=== PATIENT | female | born 1965 | race Caucasian/White ===

== ENCOUNTER 2016-12-01 10:16 | Emergency (ER) | payer OTHER ==
[2016-12-01 11:15] VITALS: BP 152/71
[2016-12-01] MEDS ORDERED: HYDROcodone/ACETAMIN 5-325 MG* 1 TAB PO ONE (11:58)
[2016-12-01] MEDS ORDERED: Ibuprofen TAB* 600 MG PO ONE (11:58)
--- NOTE | 2016-12-01 12:02 | UC ---
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 Prior injury to this shoulder in May 2014, seemed to have resolved. Right- handed. Since onset of pain, any movement is extremely painful. Feels best to hold it on a pillow and not move it. No other injuries. Pain seems anterior and over deltoid. No clavicular pain. - History of Current Complaint Chief Complaint: UCUpperExtremity Stated Complaint: RIGH SHOULDER INJURY (WC) Time Seen by Provider: 12/01/16 11:54 Hx Obtained From: Patient Hx Last Menstrual Period: age 37 Onset/Duration: Sudden Onset, Lasting Hours - 1 Timing: Constant Severity Initially: Moderate Severity Currently: Severe Location Of Pain: Is Discrete @ - right anterior and lat shoulder Character: Sharp, Aching, Spasmodic, Stiffness Aggravating Factor(s): Movement Alleviating Factor(s): Rest Associated Signs And Symptoms: Positive: Negative - Risk Factors Non-Orthopedic Risk Factor: Negative DVT Risk Factors: Negative Septic Arthritis Risk Factor: Negative - Allergies/Home Medications Allergies/Adverse Reactions: Allergies Allergy/AdvReac Type Severity Reaction Status Date / Time Codeine Allergy GI Upset Verified 12/01/16 11:15 migraine med Allergy Difficulty Uncoded 12/01/16 11:15 Breathing Home Medications: Home Medications Alendronate Sodium [Alendronate Sodium-] 5 mg PO WEEKLY 12/01/16 [History Confirmed 12/01/16] PMH/Surg Hx/FS Hx/Imm Hx Previously Healthy: Yes - Surgical History Surgical History: Yes Surgery Procedure, Year, and Place: uterine ablation, fibroid cysts - Family History Known Family History: Positive: Hypertension - Social History Occupation: Employed Full-time Lives: With Family Alcohol Use: Occasionally Substance Use Type: None Smoking Status (MU): Heavy Every Day Tobacco Smoker Type: Cigarettes Amount Used/How Often: 1 pack day Review of Systems Constitutional: Negative Skin: Negative Eyes: Negative ENT: Negative Respiratory: Negative Cardiovascular: Negative Gastrointestinal: Negative Genitourinary: Negative Motor: Negative Neurovascular: Negative Musculoskeletal: Arthralgia, Decreased ROM, Myalgia Neurological: Negative Psychological: Negative All Other Systems Reviewed And Are Negative: Yes Physical Exam Triage Information Reviewed: Yes Appearance: Well-Appearing, No Pain Distress, Well-Nourished Vital Signs: Initial Vital Signs Temp 98 F 12/01/16 11:08 Pulse 81 12/01/16 11:08 Resp 18 12/01/16 11:08 BP 152/71 12/01/16 11:08 Pulse Ox 100 12/01/16 11:08 Vital Signs Reviewed: Yes Eye Exam: Normal Neck exam: Normal Respiratory Exam: Normal Cardiovascular Exam: Normal Musculoskeletal Exam: Other - diffuse tenderness over right shoulder, particularly deltoid and biceps tendon. Too painful to move in any direction. HOlding elbow flexed and on pillow. Neurological Exam: Normal Psychological Exam: Normal Skin Exam: Normal Diagnostics - Laboratory Diagnostic Studies Completed/Ordered: XRay neg Shoulder Course/Dx - Differential Dx/Diagnosis Differential Diagnosis/HQI/PQRI: AC Separation, Fracture (Closed), Rotator Cuff Injury, Tendonitis Provider Diagnoses: rotator cuff injury Discharge - Discharge Plan Condition: Stable Disposition: HOME Prescriptions: Cyclobenzaprine TAB* [Flexeril TAB*] 10 mg PO TID PRN #30 tab PRN Reason: Pain Hydrocodone-Acetaminophen [Hydrocodone/Acetaminophen 5-325 mg] 1 - 2 tab PO Q6HR PRN #30 tab MDD 6 tab PRN Reason: Pain Patient Education Materials: Rotator Cuff Injury (ED) Forms: *Work Release Referrals: Viry Daily MD [Primary Care Provider] - Jay Wesley MD [Medical Doctor] - Margot Schmitz PA [Physician Regional Marketing Director] -
--- NOTE | 2016-12-01 12:14 | RAD ---
Indication: Shoulder pain. 3 views of the right shoulder demonstrates no fracture. No other bone or joint abnormality is identified. IMPRESSION: No fracture of the right shoulder is noted.
== END 2016-12-01 12:41 | disposition home or self-care (01) ==
LOC: UCCORT 10:16
DX: S46.001A Unspecified injury of muscle(s) and tendon(s) of the rotator cuff of right shoulder, initial encounter (principal); F17.210 Nicotine dependence, cigarettes, uncomplicated; X58.XXXA Exposure to other specified factors, initial encounter; Y92.9 Unspecified place or not applicable; Y99.0 Civilian activity done for income or pay; Z88.5 Allergy status to narcotic agent; Z88.8 Allergy status to other drugs, medicaments and biological substances
CPT/HCPCS: 99213; A9270-GY; G0463

== ENCOUNTER 2018-06-20 16:19 | Emergency (ER) | payer BC, OTHER ==
[2018-06-20 17:01] VITALS: BP 129/82
[2018-06-20] MEDS ORDERED: predniSONE TAB* 20 MG PO ONE (17:40)
--- NOTE | 2018-06-20 17:51 | UC ---
Skin Complaint HPI - HPI Summary HPI Summary: was at [employer] 3 days ago in a yard and noticed itchy rash on left leg which later spread to areas where she was scratching: arms, both legs, buttocks and thighs. Denies contact with insects, new food, chemical contact with skin. Denies chills, fever, SOB, dysphagia or wheezing. Has been taking Benadryl and hydrocortisone cream [id number] to her with some short lived relief - History of Current Complaint Chief Complaint: UCRash Time Seen by Provider: 06/20/18 17:21 Stated Complaint: RASH Hx Obtained From: Patient Hx Last Menstrual Period: age 37 ?: Yes Onset/Duration: Sudden Onset, Lasting Days Skin Exposure Onset/Duration: Days Ago Onset Severity: Mild Current Severity: Moderate Pain Intensity: 0 - Allergy/Home Medications Allergies/Adverse Reactions: Allergies Allergy/AdvReac Type Severity Reaction Status Date / Time codeine AdvReac GI Upset Verified 06/20/18 17:02 migraine med Allergy Difficulty Uncoded 06/20/18 17:02 Breathing Home Medications: Home Medications diphenhydrAMINE HCl [Benadryl Allergy] 25 mg PO Q4HR 06/20/18 [History Confirmed 06/20/18] Review of Systems Skin: Rash All Other Systems Reviewed And Are Negative: Yes PMH/Surg Hx/FS Hx/Imm Hx Previously Healthy: Yes Endocrine History: Other Other Endocrine History: OP GI/ History: Gastroesophageal Reflux - Surgical History Surgical History: Yes Surgery Procedure, Year, and Place: uterine ablation, fibroid cysts - Family History Known Family History: Positive: Hypertension - Social History Alcohol Use: Occasionally Substance Use Type: None Smoking Status (MU): Heavy Every Day Tobacco Smoker Type: Cigarettes Amount Used/How Often: 1 pack day Length of Time of Smoking/Using Tobacco: since age 17 Have You Smoked in the Last Year: Yes Physical Exam Triage Information Reviewed: Yes Appearance: Well-Appearing, No Pain Distress, Well-Nourished Vital Signs: Initial Vital Signs Temp 98.9 F 06/20/18 16:54 Pulse 89 06/20/18 16:54 Resp 16 06/20/18 16:54 BP 129/82 06/20/18 16:54 Pulse Ox 98 06/20/18 16:54 Vital Signs Reviewed: Yes Eyes: Positive: Conjunctiva Clear ENT: Positive: Hearing grossly normal, Pharynx normal Neck: Positive: Supple, Nontender Respiratory: Positive: Chest non-tender, Lungs clear, Normal breath sounds Cardiovascular: Positive: RRR, No Murmur, Pulses Normal, Brisk Capillary Refill Abdomen Description: Positive: Nontender Skin: Positive: rashes - blanching macular rash on volar aspect of both arms, buttocks and thighs, which has confluence on LE b/l Course/Dx - Course Course Of Treatment: patient who developed urticaria after yard picnic 3 days ago. Start prednisone as prescribed, and lidex crem no more than 7 days. Continue f/u with PCP - Diagnoses Provider Diagnoses: urticarial rash Discharge - Sign-Out/Discharge Documenting (check all that apply): Patient Departure All imaging exams completed and their final reports reviewed: Yes - Discharge Plan Condition: Stable Disposition: HOME Prescriptions: Fluocinonide 0.05% CM(NF) [Lidex 0.05% CREAM(NF)] 1 applic TOPICAL DAILY PRN 7 Days #1 tube PRN Reason: Itching predniSONE TAB* [Deltasone 20 MG TAB*] 40 mg PO DAILY 4 Days #8 tab Patient Education Materials: Urticaria (ED), Prednisone (By mouth) Referrals: Viry Daily MD [Primary Care Provider] - - Billing Disposition and Condition Condition: STABLE Disposition: Home
== END 2018-06-20 17:51 | disposition home or self-care (01) ==
LOC: UCCORT 16:19
DX: L50.9 Urticaria, unspecified (principal); F17.210 Nicotine dependence, cigarettes, uncomplicated; Z88.5 Allergy status to narcotic agent
CPT/HCPCS: 99212; G0463; J7512